=== PATIENT | male | born 1965 | race Native Hawaiian/Other Pacific Islander ===

== ENCOUNTER 2019-05-27 12:40 | Outpatient (CLI) | payer OTHER ==
[2019-05-27 12:54] LABS: POTASSIUM 2.7 mmol/L (3.6-5.2)
== END 2019-05-27 22:13 | disposition home or self-care (01) ==
LOC: LAB 12:40
PROVIDERS: Physician Assistant Medical
DX: N28.9 Disorder of kidney and ureter, unspecified (principal)
CPT/HCPCS: 80048

== ENCOUNTER 2019-09-22 19:41 | Emergency (ER) | payer OTHER ==
[~2019-09-22] VITALS: Ht 165.1 cm; Wt 67.1 kg
[2019-09-22 19:59] VITALS: TEMP 98.2
[2019-09-22 20:38] LABS: PLATELET COUNT 147 K/uL (142-355)
[2019-09-22 20:47] LABS: POTASSIUM 3.6 mmol/L (3.6-5.2)
[2019-09-22 22:54] VITALS: BP 115/70
== END 2019-09-22 22:56 | disposition home or self-care (01) ==
LOC: ED 19:41
PROVIDERS: Family Medicine
DX: N39.0 Urinary tract infection, site not specified (principal); N28.9 Disorder of kidney and ureter, unspecified
CPT/HCPCS: 80053; 81000; 85027; 87077; 87086; 87088; 87186; 87502; 96372; 99283; J0696